=== PATIENT | female | born 1945 | race Caucasian/White ===

== ENCOUNTER 2020-04-14 12:20 | Outpatient (REF) | payer MEDICARE, OTHER, SELFPAY | END 2020-04-14 12:21 | disposition home or self-care (01) | LOC: HO.MANLNP 12:20 | PROVIDERS: PCP Physician Assistant; Visit Provider Physician Assistant | DX: R30.9 Painful micturition, unspecified (principal) | CPT/HCPCS: 87086 ==

== ENCOUNTER 2022-01-02 11:35 | Outpatient (REF) | payer MEDICARE, OTHER, SELFPAY ==
[2022-01-02 12:48] LABS: Appearance Urine CLEAR; Color Urine STRAW; Glucose Urine UA NEG (NEG); Leukocyte Esterase Urine NEG (NEG); Nitrite Urine NEG (NEG); PH 6.5 (5.0-8.0); Specific Gravity - Urine <= 1.005 (1.005-1.025); Urine Blood NEG (NEG); Urine Ketones NEG (NEG); Urine Protein NEG (NEG-TRACE)
[2022-01-02 12:58] LABS: RBC Urine 0 /HPF (0); WBC Urine 0 /HPF (0-4)
== END 2022-01-02 11:36 | disposition home or self-care (01) ==
LOC: HO.MANLDS 11:35
PROVIDERS: Visit Provider Physician Assistant
DX: R30.0 Dysuria (principal)
CPT/HCPCS: 81001; 87086

== ENCOUNTER 2024-09-08 14:11 | Outpatient (REF) | payer MEDICARE, OTHER, SELFPAY ==
[2024-09-08 18:25] LABS: MANUAL DIFF FLAG NO
[2024-09-08 18:29] LABS: Basophils Absolute Auto 0.1 X10*3/uL (0.0-0.2); Eosinophils Absolute Auto 0.2 X10*3/uL (0.0-0.4); Hematocrit 35.9 % (37.0-47.0); Hemoglobin 11.8 g/dl (12.0-16.0); Imm Gran Abs Auto 0.02 X10*3/uL (0.00-0.03); Imm Gran Pct Auto 0.3 % (0.0-0.4); Lymphocytes Absolute Auto 1.6 X10*3/uL (1.2-4.9); Mean Corpuscular HGB Conc 32.9 g/dl (31.0-35.0); Mean Corpuscular Hemoglobin 31.9 pg (27.0-33.0); Mean Platelet Volume 9.4 fL (9.4-12.3); Monocytes Absolute Auto 0.6 X10*3/uL (0.1-1.2); Monocytes Percent Auto 8.3 % (2-11); Neutrophils Absolute Auto 4.3 x10*3/uL (2.0-8.3); Neutrophils Percent Auto 63.4 % (45-73); Platelet Count 418 X10*3/uL (160-400); Red Cell Distribution Width 13.9 % (11.0-16.0); White Blood Count 6.7 X10*3/uL (4.8-10.8)
[2024-09-08 18:57] LABS: Alanine Aminotransferase 24 U/L (0-31); Albumin Level 3.9 g/dL (3.5-5.0); Alkaline Phosphatase 85 U/L (39-117); Anion Gap 11 (12-20); Aspartate Amino Transferase 26 U/L (5-31); Bilirubin Total 0.2 mg/dL (0.0-1.0); Blood Urea Nitrogen 23 mg/dL (9-16); Calcium 9.1 mg/dL (8.4-10.2); Carbon Dioxide 27 mmol/L (22-29); Chloride 106 mmol/L (96-108); Estimated Glomerular Filt Rate > 60; Glucose Random 87 mg/dL (60-115); Potassium 4.5 mmol/L (3.3-5.1); Sodium 139 mmol/L (135-145); Total Protein 6.8 g/dL (6.5-8.0)
[2024-09-08 19:18] LABS: Thyroid Stimulating Hormone 0.28 uIU/mL (0.32-4.0)
[2024-09-08 19:19] LABS: Vitamin B12 818 pg/mL (200-900)
[2024-09-08 19:29] LABS: T4 Thyroxine 7.7 ug/dL (4.5-12.0)
[2024-09-09 05:59] LABS: Estimated Average Glucose 105 mg/dL; Hemoglobin A1c % 5.3 % (<6.0)
== END 2024-09-08 14:12 | disposition home or self-care (01) ==
LOC: HO.MANLDS 14:11
PROVIDERS: Visit Provider Physician Assistant
DX: Z00.00 Encounter for general adult medical examination without abnormal findings (principal); Z13.1 Encounter for screening for diabetes mellitus
CPT/HCPCS: 36415; 80053; 82607; 83036; 84436; 84443; 85025

== ENCOUNTER 2024-09-14 07:33 | Outpatient (REF) | payer MEDICARE, OTHER, SELFPAY ==
[2024-09-14 14:16] LABS: Cholesterol 250 mg/dL (<200); HDL Cholesterol 68 mg/dL (>40); LDL Cholesterol Calculated 162 mg/dL (<100); Triglycerides 101 mg/dL (<150)
== END 2024-09-14 07:34 | disposition home or self-care (01) ==
LOC: HO.MANLDS 07:33
PROVIDERS: Visit Provider Physician Assistant
DX: Z00.00 Encounter for general adult medical examination without abnormal findings (principal); Z13.6 Encounter for screening for cardiovascular disorders
CPT/HCPCS: 36415; 80061

== ENCOUNTER 2024-10-26 15:49 | Outpatient (REF) | payer MEDICARE, OTHER, SELFPAY ==
--- OUTSIDE RECORDS SUMMARY | 2024-10-26 16:30 | XMS_ITS | Data Portability ---
Author Organization [facility] Home Service Address [address] [place] [address] Assessment Encounter Date Assessment Date Assessment LastModified by Organization Details LastModified Time 02/23/2024 02/23/2024 Patient agreed and verbally consents to this audio and video Telehealth appt via a secure platform [email or web address] Not available 02/23/2024 14:03:30 10/19/2024 10/19/2024 Patient agreed and verbally consents to this audio and video Telehealth appt via a secure platform [email or web address] Not available 10/19/2024 11:03:42 Plan of Treatment Reminders Order Date Submit Date Provider Last Modified By Organization Details Last Modified Time Details Appointments FOLLOW UP 15 2024 02:30P M BLANCHE ABDI Not available Not available Not available ANNUAL EXAM 2025 10:00A M BLANCHE ABDI Not available Not available Not available Lab CBC w/ auto diff 2024 025 [facility], [address] [place] [address], [id number], 10/26/2024 15:15:32 CMP, serum or plasma 2024 025 [facility], [address] [place] [address], [id number], 10/26/2024 15:13:28 osmolalit y, urine 2024 025 [facility], [address] [place] [address], [id number], 10/26/2024 15:13:28 CMP, serum or plasma 2024 025 [facility] [address], [address], 07/14/2024 10:44:42 CBC w/ auto diff 2024 025 [facility] [address], [address], 07/14/2024 10:44:42 vitamin D, 25-hydrox y, total, serum 2024 025 [facility] [address], [address], 07/14/2024 10:44:42 hemoglobi n A1c, QN, blood 2024 025 [facility] [address], [address], 09/09/2024 12:56:42 TSH + free T4, serum 2024 025 [facility] [address], [address], 07/14/2024 10:44:42 vitamin B12 + folate, serum or blood 2024 025 [facility] [address], [address], 07/14/2024 10:44:42 lipid panel, blood 2024 025 [facility] [address], [address], 09/15/2024 13:00:00 C reactive protein, QN, serum or plasma 2023 024 [facility] (Centralized Electronic Ordering - All Locations), Patient Can Go To The Location Of Their Choice, [id number] 03/24/2024 11:28:05 amylase + lipase, serum 2023 024 [facility] (Centralized Electronic Ordering - All Locations), Patient Can Go To The Location Of Their Choice, [address] 03/24/2024 11:28:05 iron + TIBC + ferritin, serum 2023 [facility] (Centralized Electronic Ordering - All Locations), Patient Can Go To The Location Of Their Choice, [address] 03/24/2024 11:28:05 CMP, serum or plasma 2023 [facility] (Centralized Electronic Ordering - All Locations), Patient Can Go To The Location Of Their Choice, [address] 04/01/2024 07:18:43 CBC w/ auto diff 2023 [facility] (Centralized Electronic Ordering - All Locations), Patient Can Go To The Location Of Their Choice, [address] 03/24/2024 11:28:05 ESR (erythroc yte sedimenta tion rate), blood 2023 [facility] (Centralized Electronic Ordering - All Locations), Patient Can Go To The Location Of Their Choice, [address] 03/24/2024 11:28:05 Referral urologist referral 2024 025 GURJIT Reid MD, [address] [place] [address], [address], 10/26/2024 16:23:43 gastroent erologist referral 2024 025 [email or web address] Hill Preciado MD, [address] [place] [address], [address], 10/26/2024 16:10:05 gastroent erologist referral 2024 025 [email or web address] Preciado MD, [address] [place] [address], [address], 07/16/2024 10:42:22 Procedures None recorded. Surgeries None recorded. Imaging US, abdomen + pelvis 2023 024 [email or web address] Not available 03/30/2024 09:50:54 Medication Orders metronida zole 0.75 % topical cream 2024 025 [facility], [address] [place] [address], [address], 10/19/2024 11:06:40 Zithromax Z-Donny 250 mg tablet 2024 025 [facility], [address] [place] [address], [address], 10/19/2024 11:06:37 Medrol (Donny) 4 mg tablets in a dose pack 2024 025 [facility], [address] [place] [address], [address], 10/19/2024 11:06:37 Zithromax Z-Donny 250 mg tablet 2023 024 [facility], [address] [place] [address], [address], 03/24/2024 10:51:48 fluocinol one acetonide oil 0.01 % ear drops 2023 024 [facility], [address] [place] [address], [address], 03/24/2024 10:51:54 Patient TargetsNo targets recorded. Patient InstructionsNo instructions recorded. Reason for Referral Greige Mender Referral for Screening for malignant neoplasm of colon due to for colonoscopy and endoscope Referring Physician: Juanita Conrad, Internal Medicine, Encounter Date: 07/14/2024 Urologist Referral for Kidne y stone kidney stone L side, 2mm getting a lot of pain Referring Physician: Juanita Conrad, Internal Medicine, Encounter Date: 10/26/2024 Greige Mender Referral for Acute abdominal pain has appointment, symptoms significantly worsening with abd pain Referring Physician: Juanita Conrad, Internal Medicine, Encounter Date: 10/26/2024 Results Created Date Observation Date Name Description Value Unit Range Abnormal Flag Note LastModifiedBy Organization Detail LastModifiedTime 03/31/20 24 03/31/2024 US, abdom en + pelvi s No observ ation record ed. [email or web address] [facility] [address] [place], [address], 04/02/2024 10:59:04 04/01/20 24 03/31/2024 MAMMO , scree alix, digit al, bilat eral No observ ation record ed. [email or web address] [facility] - Callback Orders Only [address] [place], [address], 04/02/2024 08:40:51 Result Notes None recorded. Problems Name Problem SNOMED Code Status Onset Date Resolution Date Notes Provider Name and Address Organization Details Recorded Time Gastroes ophageal reflux disease 483067656 Active 2018 Not Available [facility] 3 12:25:15 Pneumoni a caused by SARS-CoV -2 74461463606 1048430 Active 2021 Not Available [facility] 3 12:25:15 COVID-19 100298100 Active 2021 Not Available [facility] 3 12:25:15 Pain of right ankle joint 07130644992 829730 Active 2021 Not Available [facility] 3 12:25:15 Dysuria 77579450 Active 2021 Not Available [facility] 3 12:25:15 Lumbago with sciatica 068402019 Active 2021 Not Available [facility] 3 12:25:15 Acute sinusiti s 97758935 Active 2021 Not Available [facility] 3 12:25:15 Spinal stenosis of lumbar region 52923008 Active 2021 Not Available [facility] 3 12:25:15 Vertigo 152901630 Active 2021 Not Available [facility] 3 12:25:15 Posterio r rhinorrh ea 70570658 Active 2021 Not Available [facility] 3 12:25:15 Nausea 319916940 Active 2021 Not Available [facility] 3 12:25:15 Pain of left hip joint 25533468000 9100 Active 2022 Not Available [facility] 3 12:25:15 Acute bronchit is 34585719 Active 2022 Not Available [facility] 3 12:25:15 Acute urinary tract infectio n 281480154 Active 2022 Not Available [facility] 3 12:25:15 Abdomina l pain 91285774 Active 2022 BLANCHE ABDI [address] [place], [address], [facility] 3 11:03:08 Hematoch ezia 054843312 Active 2022 BLANCHE ABDI [address] [place], [address], [facility] 3 11:04:57 Gastriti s 3740000 Active 2022 BLANCHE ABDI [address] [place], [address], [facility] 3 11:06:06 Varicose veins of lower extremit y 39628402 Active 2022 BLANCHE ABDI [address] [place], [address], [facility] 3 11:11:56 Peripher al vascular disease 196852774 Active 2022 BLANCHE ABDI [address] [place], [address], [facility] 3 12:00:54 Pain of right elbow joint 81840513771 171794 Active 2023 BLANCHE ABDI [address] [place], [address], [facility] 4 09:52:47 Goiter 7771358 Active 2017 multinodu lar Not Available [facility] 3 12:25:15 Osteopen ia 437817920 Active 2017 Not Available [facility] 3 12:25:15 Dysthymi a 86517993 Active 2017 Not Available [facility] 3 12:25:15 Osteoart hritis 308990201 Active 2017 Not Available [facility] 3 12:25:15 Asthma 382899231 Active 2017 Not Available [facility] 3 12:25:15 Anxiety 66077252 Active 2017 Not Available [facility] 3 12:25:15 Degenera tion of lumbar interver tebral disc 76648082 Active 2017 Not Available [facility] 3 12:25:15 Essentia l hyperten tiesha 87790358 Active 2017 Not Available [facility] 3 12:25:15 Vaginiti s 85500190 Active 2017 Not Available [facility] 3 12:25:15 Hyperlip idemia 16168163 Active 2017 myalgias with statins Not Available [facility] 3 12:25:15 Pain of left shoulder joint 29567740872 722712 Active 2023 BLANCHE ABDI [address] [place], [address], [facility] 4 11:54:11 Strain of supraspi natus muscle AND/OR tendon 16437692 Active 2023 BLANCHE ABDI [address] [place], [address], [facility] 4 15:25:12 Acute otitis media 8501579 Active 2023 BLANCHE ABDI [address] [place], [address], [facility] 4 13:58:32 Acute otitis media 8331736 Active 2023 BLANCHE ABDI [address] [place], [address], [facility] 4 13:58:45 Eczema 20125831 Active 2023 BLANCHE ABDI [address] [place], [address], [facility] 4 14:03:13 Ashley e 191505253 Active 2023 BLANCHE ABDI [address] [place], [address], [facility] 4 11:01:11 Acute bilatera l otitis media 682387738 Active 2024 BLANCHE ABDI [address] [place] [address], [address], [facility] 5 11:02:58 Rosacea 834166846 Active 2024 BLANCHE ABDI [address] [place] [address], [address], [facility] 5 11:04:46 Acute abdomina l pain 440089907 Active 2024 BLANCHE ABDI [address] [place] [address], [address], [facility] 5 08:43:03 Hyponatr emia 19752735 Active 2024 BLANCHE ABDI [address] [place] [address], [address], [facility] 5 08:43:20 Kidney stone 92552537 Active 2024 BLANCHE ABID [address] [place] [address], [address], [facility] 5 15:05:12 Leukocyt osis 085979492 Active 2024 BLANCHE ABDI [address] [place], [address], [place] [facility] 5 15:12:28 Nausea and vomiting 83963288 Active 2024 BLANCHE ABDI [address] [place] [address], [address], [facility] 5 15:14:22 Notes:Some problems listed i n Document: #[id number] could not be added to this patient's chart. Please review this document and add these problems to the patient's chart manually as needed. Problem Notes None recorded. Procedures Surgical History Date Name Laterality Status Provider Name and Address Organization Details Recorded Time Carpal tunnel surgery completed Rosamaria Aleman NP, [address] [place] [address], [address], [facility] 01/12/2018 11:51:58 Rhinoplasty completed Rosamaria Casanova i, NP, [address] [place] [address], [address], [facility] 01/12/2018 11:52:07 Septoplasty completed Rosamaria Casanova i, NP, [address] [place] [address], [address], [facility] 01/12/2018 11:52:20 Imaging Results Imaging Date Name Status LastModified by Organiz ation Details LastModified Time 03/31/2024 US, abdomen + pelvis completed [email or web address] [facility] [address] [place], [address], 04/02/2024 10:59:04 03/31/2024 MAMMO, screening, digital, bilateral completed [email or web address] [facility] - Callback Orders Only [address] [place], [address], 04/02/2024 08:40:51 Procedure Notes None recorded. Medical Equipment None Reported. Allergies Allergen ID Allergen Name Allergen Category Reaction Reaction Severity Criticality Documentation Date Start Date Code Code System Note Provider Name and Address Organization Details Recorded Time 4166 Vioxx medicatio n rash Not available Not available 04/18/2020 48551 9 [facility] 0 13:31:28 4167 Celebrex medicatio n rash Not available Not available 04/18/2020 31636 7 RxNorm Nusrat Celis tiffanie [facility] 0 13:31:42 880 Product containin g penicilli n (product) medicatio n Not available Not available Not available 09/24/2017 19644 8001 SNOMED Flakita Mcconnell tiffanie [facility] 8 08:39:59 Medications Name Sig Start Date Stop Date Status Note LastModified by Organization Details LastModified Time budesonide 32 mcg/actuati on nasal spray Take 1 spray every day by nasal route for 30 days. 03/05 completed Not Available Not Available Not Available prednisone 10 mg tablet PLEASE SEE ATTACHED FOR DETAILED DIRECTION S 11/25 completed Not Available Not Available Not Available doxycycline hyclate 100 mg capsule TAKE 1 CAPSULE BY MOUTH TWICE A DAY FOR 10 DAYS 11/25 completed Not Available Not Available Not Available ketoconazol e 2 % shampoo 12/29 completed Not Available Not Available Not Available azithromyci n 250 mg tablet TAKE 2 TABLETS BY MOUTH TODAY, THEN TAKE 1 TABLET DAILY FOR 4 DAYS DIRECTED active Not Available Not Available No t Available ondansetron HCl 8 mg tablet 07/02 completed Not Available Not Available Not Available prednisone 20 mg tablet 09/24 completed Not Available Not Available Not Available Pyridium 100 mg tablet Take 1 tablet 3 times a day by oral route as needed. 01/12 completed Not Available Not Available Not Available Pyridium 200 mg tablet Take 1 tablet 3 times a day by oral route as needed for 7 days. 12/29 completed Not Available Not Available Not Available meclizine 12.5 mg tablet TAKE 1 TABLET BY MOUTH THREE TIMES A DAY NEEDED FOR 14 DAYS 07/02 completed Not Available Not Available Not Available ciprofloxac in 250 mg tablet TAKE 1 TABLET BY MOUTH TWICE A DAY FOR 5 DAYS 07/02 completed Not Available Not Available Not Available ciprofloxac in 500 mg tablet TAKE 1 TABLET BY MOUTH EVERY 12 HOURS FOR 7 DAYS 04/18 completed Not Available Not Available Not Available sulfamethox azole 800 mg-trimetho prim 160 mg tablet TAKE 1 TABLET BY MOUTH EVERY 12 HOURS FOR 7 DAYS 02/22 completed Not Available Not Available Not Available tramadol 50 mg tablet TAKE 1 TABLET BY MOUTH EVERY 6 HOURS NEEDED FOR 7 DAYS 03/05 completed PRN Not Available Not Available Not Available triamcinolo ne acetonide 0.1 % topical cream 01/12 completed Not Available Not Available Not Available meloxicam 7.5 mg tablet TAKE ONE TAB BY MOUTH ONCE A DAY BY MOUTH. TAKE THIS MEDICAITO N WITH FOOD 07/02 completed Not Available Not Available Not Available betamethaso ne, augmented 0.05 % lotion 01/12 completed Not Available Not Available Not Available alprazolam 0.5 mg tablet TAKE 1 TAB 1 HOUR PRIOR TO INJECTION . 03/05 completed Not Available Not Available Not Available citalopram 20 mg tablet TAKE 1 TABLET BY MOUTH EVERY DAY active Not Available Not Available No t Available lorazepam 0.5 mg tablet Take 1 tablet every day by oral route at bedtime. 07/02 completed Not Available Not Available Not Available benzonatate 100 mg capsule TAKE 1 CAPSULE BY MOUTH THREE TIMES A DAY NEEDED FOR COUGH 03/05 completed Not Available Not Available Not Available erythromyci n 5 mg/gram (0.5 %) eye ointment APPLY INTO RIGHT EYE 2 3 TIMES PER DAY NEEDED 12/29 completed Not Available Not Available Not Available lisinopril 10 mg tablet TAKE 1 TABLET BY MOUTH EVERY DAY active Not Available Not Available No t Available metronidazo le 0.75 % topical cream APPLY A THIN LAYER TOPICALLY TO THE AFFECTED AREA(S) 2 TIMES PER DAY IN THE MORNING AND EVENING active Not Available Not Available No t Available omeprazole 20 mg capsule,del ayed release TAKE 1 CAPSULE BY MOUTH TWICE A DAY active Not Available Not Available No t Available codeine 10 mg-guaifene sin 100 mg/5 mL oral liquid TAKE 10 ML BY MOUTH EVERY 4 HOURS NEEDED 02/22 completed Not Available Not Available Not Available levofloxaci n 500 mg tablet TAKE 1 TABLET BY MOUTH EVERY 24 HOURS FOR 7 DAYS 01/02 completed Not Available Not Available Not Available methylpredn isolone 4 mg tablets in a dose pack TAKE 6 TABLETS ON DAY 1 DIRECTED ON PACKAGE AND DECREASE BY 1 TAB EACH DAY FOR A TOTAL OF 6 DAYS active Not Available Not Available No t Available albuterol sulfate HFA 90 mcg/actuati on aerosol inhaler INHALE 2 PUFFS INTO THE LUNGS EVERY 4 HOURS NEEDED FOR WHEEZING OR SHORTNESS OF BREATH/DY SPNEA active Not Available Not Available No t Available clobetasol 0.05 % scalp solution 12/29 completed Not Available Not Available Not Available clotrimazol e 1 % topical cream 07/03 completed Not Available Not Available Not Available betamethaso ne dipropionat e 0.05 % lotion APPLY A FEW DROPS TO THE AFFECTED AREA(S) BY TOPICAL ROUTE 2 TIMES PER DAY IN THE MORNING AND AT BEDTIME ; RUB IN GENTLY AND COMPLETEL Y 04/18 completed Not Available Not Available Not Available doxycycline hyclate 100 mg tablet TAKE 1 TABLET BY MOUTH TWICE A DAY FOR 7 DAYS 03/05 completed Not Available Not Available Not Available dicyclomine 10 mg capsule TAKE 1 CAPSULE BY MOUTH THREE TIMES A DAY FOR 2 WEEKS 04/07 completed Not Available Not Available Not Available tobramycin 0.3 %-dexametha sone 0.1 % eye drops,suspe nsion INSTILL 1 DROP INTO BOTH EYES TWICE A DAY 03/05 completed Not Available Not Available Not Available oxycodone 5 mg tablet TAKE 1 TABLET BY MOUTH EVERY 6 HOURS NEEDED FOR PAIN *DO NOT DRIVE ON MEDICATIO N* 01/02 completed Not Available Not Available Not Available ciclopirox 0.77 % topical cream 01/12 completed Not Available Not Available Not Available prednisolon e sodium phosphate 5 mg base/5 mL (6.7 mg/5 mL) oral soln 10/07 completed Not Available Not Available Not Available rosuvastati n 5 mg tablet Take 1 tablet every day by oral route. 07/03 completed Not Available Not Available Not Available nitrofurant oin monohydrate /macrocryst als 100 mg capsule Take 1 capsule every 12 hours by oral route for 5 days. 12/29 completed Not Available Not Available Not Available magnesium 500 mg active Not Available Not Dawn ilable Not Available calcium 500mg qd active Not Available Not Dawn ilable Not Available Stool Softener Twice a day; OTC active Not Available Not Available No t Available Metamucil OTC 2022 active Not Available Not Available Not Avai lable Miralax 07/02 completed Not Available Not Available Not Available fluocinolon e acetonide oil 0.01 % ear drops INSTILL 5 DROPS INTO AFFECTED EAR X 10 DAYS 03/24 completed Not Available Not Available Not Available Aller-Inna OTC active Not Available Not Dawn ilable Not Available GaviLyte-G 236 gram-22.74 gram-6.74 gram-5.86 gram oral solution 10/31 completed Not Available Not Available Not Available Fluzone High-Dose 4073-6693 (PF) 180 mcg/0.5 mL intramuscul ar syringe 10/20 completed Not Available Not Available Not Available Shingrix (PF) 50 mcg/0.5 mL intramuscul ar suspension, kit 01/20 completed Not Available Not Available Not Available Fluad 2017- 65yr up(PF)45 mcg(15 mcgx3)/0.5 mL intramuscul ar syringe 06/19 completed Not Available Not Available Not Available Fluzone High-Dose (PF) 180 mcg/0.5 mL intramuscul ar syringe 04/14 completed Not Available Not Available Not Available Fluad Quad (6 5yr up)(PF) 60 mcg (15 mcg x 4)/0.5mL IM syringe 04/14 completed Not Available Not Available Not Available Flowflex COVID-19 Antigen Home Test kit DIRECTED 05/08 completed Not Available Not Available Not Available Vitals Date Recorded Body height Body mass index (BMI) Body weight Heart rate Oxygen saturation Oxygen saturation in Arterial blood by Pulse oximetry Systolic blood pressure Diastolic blood pressure Provider Name and Address Organization Details Last Updated DateTime 4 151.77 cm 30.3 kg/m2 72926.5 1 g 87 /min 95 % 95 % 142 mm[Hg] 88 mm[Hg] [facility] 4 11:04:36 Date Recorded Body height Body mass index (BMI) Body weight Heart rate Oxygen saturation Oxygen saturation in Arterial blood by Pulse oximetry Systolic blood pressure Diastolic blood pressure Provider Name and Address Organization Details Last Updated DateTime 5 151.77 cm 31.1 kg/m2 18998.9 5 g 68 /min 95 % 95 % 132 mm[Hg] 86 mm[Hg] Rachel Young [facility] 5 10:00:29 Date Recorded Body height Heart rate Oxygen saturation Oxygen saturation in Arterial blood by Pulse oximetry Systolic blood pressure Diastolic blood pressure Provider Name and Address Organization Details Last Updated DateTime 5 151.77 cm 91 /min 97 % 97 % 108 mm[Hg] 70 mm[Hg] Rachel Young [facility] 5 14:57:26 Social History Question Answer Notes LastModified by Organizat ion Details LastModified Time Tobacco Smoking Status Former Smoker Not Available [facility] 04/18/2020 03:36:24 What Was The Date Of Your Most Recent Tobacco Screening? 07/14/2024 [email or web address] Information not available 07/14/2024 How Many Years Have You Smoked Tobacco? 40 [id number] Information not available 04/18/2020 Sex: Unknown Functional Status Question Answer Note LastModified by Organization D etails LastModified Time Do you or have you ever used any other forms of tobacco or nicotine? No [email or web address] Information not available 01/02/2022 Mental Status None recorded. Family History Relationship Description Onset Age of this Age Resolved Age Notes LastModified by Organization Details LastModified Time Father Malignant tumor of colon 82 IFG, thyroi d goiter , OA car Not available 01/12/2018 11:49:55 Mother Chronic obstructive pulmonary disease vascul ar diseas e, pacema ker, neurop athy 2018- 97 years age car Not available 01/12/2018 11:51:03 Medical History Condition Response Coronary Artery Disease N Gout N Kidney Stones N Blood Diseases N Hyperthyroidism N Blood Transfusion Y Breast Cancer N Hypothyroidism N Lung Disease N Depression Y COPD N Defects or Inherited Disease N Difficulty Swallowing N Anesthesia Complications N Anxiety Disorder Y Meniere's disease N Muscle, Joint, or Bone Problems N Obesity N Vision or Eye Problems Y Arthritis Y Mental Disorder N Cancer N Stroke N Varicosities Y Bladder or Kidney Problems Y High Cholesterol Y Liver Disease N Fibromyalgia N Headaches Y Kidney Disease N Allergies/Hayfever Y Heart Problems N Hospitalizations N Thyroid Problems GI Problems N Eating Disorder N Anemia N Constipation Y Mental Illness N Diabetes N Seizures/Epilepsy N Tuberculosis N Congestive Heart Failure (CHF) N Eczema Y Abuse/Domestic Violence N Diverticulitis N Asthma Y Reflux/GERD N Hepatitis N Heart Disease N Pulmonary Embolism N Chronic Ear Infections N Hypertension Y Chicken Pox Y Autism Spectrum Disorder (ASD) N Osteoporosis Y Thrombophilias N Gynecological HistoryNo gynecological history recorded. Obstetrics History GPAL:G 0 P 0 0 0 0 Immunizations Vaccine Type Date Status Note Provider Nam e and Address Organization Details Recorded Time pneumococcal, unspecified formulation 04/19/20 15 completed Not Available [facility] 11/30/2022 21:21:27 zoster live 04/01/20 12 completed Not Available [facility] 11/30/2022 21:21:27 COVID-19, mRNA, LNP-S, PF, 100 mcg/0.5mL dose or 50 mcg/0.25mL dose 08/18/19 21 completed Not Available [facility] 11/30/2022 21:21:27 COVID-19, mRNA, LNP-S, PF, 100 mcg/0.5mL dose or 50 mcg/0.25mL dose 09/15/19 21 completed Not Available [facility] 11/30/2022 21:21:27 tetanus toxoid, unspecified formulation 05/29/20 16 completed Not Available [facility] 11/30/2022 21:21:27 Influenza, adjuvanted, trivalent, PF 02/28/20 18 completed Not Available [facility] [facility] 11/30/2022 21:21:27 Influenza, split virus, quadrivalent, preservative 03/08/20 21 completed Not Available [facility] 11/30/2022 21:21:27 COVID-19 mRNA, bivalent, original/Omicron BA.1, Non-US Vaccine (Spikevax Bivalent), Moderna 05/24/20 22 completed Not Available [facility] 11/30/2022 21:21:27 COVID-19, mRNA, LNP-S, PF, 50 mcg/0.5 mL dose 04/18/20 21 completed Not Available [facility] 11/30/2022 21:21:27 influenza, unspecified formulation 02/17/20 22 completed Not Available [facility] 11/30/2022 21:21:27 influenza, unspecified formulation 02/27/20 23 completed SARA Zamora [facility] 03/05/2023 14:00:47 SARS-COV-2 (COVID-19) vaccine, UNSPECIFIED 03/05/20 24 completed BLANCHE ABDI [address] [place], [address], [facility] 03/24/2024 11:16:37 influenza nasal, unspecified formulation 03/05/20 24 completed BLANCHE ABDI [address] [place], [address], [facility] 03/24/2024 11:17:00 Influenza, split virus, quadrivalent, preservative 03/04/20 19 completed Not Available [facility] 11/30/2022 21:21:27 Influenza, split virus, quadrivalent, preservative 02/10/20 20 completed Not Available [facility] 11/30/2022 21:21:27 pneumococcal polysaccharide PPV23 05/19/20 12 completed Not Available [facility] 11/30/2022 21:21:27 Td (adult) 11/15/19 06 completed Not Available [facility] 11/30/2022 21:21:27 Past Encounters Encounter ID Performer Location Encounter Start Date Encounter Closed Date Diagnosis/Indication Diagnosis SNOMED-CT Code Diagnosis ICD10 Code Diagnosis Note [id number] Mina Barnard [facility] [address] [place] [address],[place] [address] 09/24/2017 14:30:31 09/24/2017 17:11:23 Pes anserinus bursitis 68668508 M70.51 rest, ice, otc IBU 600mg BID with food Plantar fasciitis 104961 003 M72.2 formerly [facility] nighttime sock from [employer], suggestion s provided, exercises provided in writing, ice, decrease walking Anxiety 87218475 F41.9 reassuranc e [id number] Mina Barnard [facility] [address] [place] [address],[place] [address] 10/20/2017 10:49:56 10/20/2017 15:34:40 Gastroesophageal reflux disease 188243280 K21.0 if no relief prilosec will refer GI Multinodular goiter 7219 49842 E04.2 check labs in house today Seasonal a llergic rhinitis 210710944 J30.2 continue shots, flonase prn Essential hypertension 22091101 I10 stable [id number] Mina Branard [facility] [address] [place] [address] 11/11/2017 10:27:40 11/11/2017 11:40:04 Dysuria 02978094 R30.0 Plantar fasciitis 075817 003 M72.2 continue therapies outlined previously , call if decides wants to see 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 statins Greater tr ochanteric pain syndrome 7615898 M70.61 Asthma 810530307 J45.90 9 rare, r/t upper respirator y illnesses Anxiety 50101252 F41.9 Essential hypertension 76586826 I10 stable [id number] Mina Barnard [facility] [address] [place] [address] 02/20/2018 14:32:29 02/20/2018 16:06:58 Acute cystitis 58217105 N30.00 [id number] Mina Barnard [facility] [address] [place] [address] 02/24/2018 14:47:47 02/24/2018 16:32:52 Screening procedure 09866538 Z13.9 Polyp 070485300 N84.9 Dysuria-fr equency syndrome 0356063 R35.0 Follow [id number] Mina Barnard [facility] [address] [place] [address] 06/19/2018 10:32:31 06/19/2018 11:26:55 Acid reflux 803402283 K21.9 will continue omeprazole as it has improved- will increase to bid for a couple weeks Rectal discharge 0640028 01 R19.8 ? metamucil will try to split up the metamucil and drink more water with it and see if this improves if not would recommend a GI consult [id number] Mina Barnard [facility] [address] [facility], ite [facility] [place] [place] [address] 07/03/2018 11:02:05 07/03/2018 16:44:07 Acid reflux 749243388 K21.9 try to decrease to once daily omeprazole from BID, to QD Rectal discharge 3204828 01 R19.8 still has sometimes, maybe a bit better will send GI consult Asthma 153900307 J45.90 9 [id number] Mina Barnard [facility] [address] [facility],[place] [address] 07/17/2018 11:21:58 07/17/2018 16:01:01 Gastroesophageal reflux disease 374527854 K21.0 stick with BID dosing Anxiety 45096104 F41.9 follow, relaxation Essential hypertension 47391405 I10 stable [id number] Mina Barnrad [facility] [address] [facility] [place] [address] 10/07/2018 15:30:32 10/09/2018 08:59:01 Screening procedure 80877142 Z13.9 Rectal discharge 3946916 01 R19.8 Gastroesop hageal reflux disease 086463764 K21.0 stick with BID dosing Hyperlipidemia 84275586 E78.2 intol. 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 Antonio who was supposed to do a f/u before the pandemic Essential hypertension 31886764 I10 combinatio n of stress and pain form dealing with mother and neuroma of the foot usually much lower Anxiety 58475811 F41.9 having a really hard time with her mother, having really hard days where she feels very depressed and anxious [id number] Mina Barnard [facility] [address] [place] [address],[place] [address] 12/03/2019 13:55:06 12/03/2019 14:25:59 Dysuria 85402115 R30.9 [id number] Mina Barnard [facility] [address],[place] [address] 01/21/2020 13:45:05 01/21/2020 16:26:29 Dysuria 46720421 R30.9 recurrent most likely due to her protruding rectum Acute urin katerina tract infection 162385922 N39.0 did well on cipro last time, will increase strength and hopefull this takes care of it [id number] Mina Barnard [facility] [address],[place] [address] 04/14/2020 11:27:20 04/14/2020 12:06:06 Dysuria 14596310 R30.9 recurrent most likely due to her protruding rectum Asthma 382556114 J45.90 9 stable Essential hypertension 70941701 I10 BP is excellent [id number] Mina Barnard [facility] [address], [place] [address] 04/18/2020 13:27:21 04/18/2020 14:50:10 Pre-surgery evaluation 577896852 Z01.818 based on exam and history the patient is cleared for surgery [id number] Mina Barnard [facility] [address] [place] [address],[place] [facility] [place] [address] 12/29/2020 13:39:06 12/29/2020 14:17:20 Bunion 104033432 M21.611 discussed fu with ortho Pain of le ft hip joint 6065376284 09479 M25.552 will fu with XR Pain in both feet 184343 8644 0981127 M79.671 will start with XR and pred taper Hammer toe 181823156 M20 .42 will fu with XR Bursitis of left hip 773 479465 M70.72 will start of short course of prednisone Iliotibial band friction syndrome 893495530 M76.32 will start on pred Screening mammography 24 709274 Z12.31 needs repeat mammogram [id number] Mina Barnard [facility] [address] [place] [address], [place] [address] 03/16/2021 11:43:06 03/16/2021 15:16:38 Acute urinary tract infection 449290086 N39.0 will treat for UTI possible pyeloneprh ritiscan use AZO OTC and cranberry tabletsinc rease water intake Gastroesop hageal reflux disease 457274805 K21.9 continued 20 mg prilosec BID with diet restrictio n and increased water intake [id number] Mina Barnard [facility] [address] [place] [address], [place] [address] 04/18/2021 14:09:00 04/20/2021 10:17:11 Pain of right shoulder joint 4061783755 2528877 M25.511 possible tear of the biceps tendongive n note to given to facility to see if they are going to cover the cost or if they want everything going through her insurance [id number] Mina Barnard [facility] [address] [place] [address], [place] [address] 07/27/2021 11:01:38 07/31/2021 08:24:03 Pain in right foot 2811295751 91275 M79.671 will have her fu with another orthopedis t for a second opinion [id number] Mina Barnard [facility] [address] [place] [address], [place] [address] 09/26/2021 09:50:17 09/26/2021 12:03:13 Pneumonia caused by SARS-CoV-2 7063715321 40034007 J12.82 will start on levofloxac in and f/u with patient with check in on friday Asthma 417449802 J45.31 acute exacerbati on in the setting of pneumoniac ontinue use of inhaler COVID-19 304138241 U07.1 09/15/21, infected at the hospital post-op [id number] Mina Barnard DO [facility] [address] [facility],[place] [address] 01/02/2022 10:43:34 01/02/2022 13:24:41 Dysuria 97863806 R30.0 will fu with culture Pain of ri ght ankle joint 4545220519 8872564 M25.571 fu with XR Essential hypertension 53599213 I10 BP is excellent Hyperlipidemia 42835282 E78.2 will fu with blood work [id number] Mina Barnard DO [facility] [address] [facility],[place] [address] 05/08/2022 11:11:55 05/08/2022 12:01:25 Vertigo 352269521 R42 will give to use as needed Posterior rhinorrhea 758 46288 R09.82 will use once per day Nausea 438197596 R11.0 start for nausea Acute sinusitis 06922900 J01.01 will start on empiric abx for preventing infection Degenerati on of lumbar intervertebral disc 62686142 M51.36 needs another referral [id number] Mina Barnard [facility] [address] [facility],[place] [address] 07/02/2022 11:35:46 07/02/2022 13:43:49 Active or passive immunization 724873561 Z23 advised Adult heal th examination 523366830 Z00.00 BP is excellent Pain of le ft hip joint 7392018503 16734 M25.552 will f/u with XR of the left hip [id number] Mina Barnard DO [facility] [address] [facility],[place] [address] 08/23/2022 09:31:17 08/26/2022 16:50:01 Asthma 009385059 J45.31 acute exacerbati on in the setting of bronchitis continue use of inhaler Acute bronchitis 4946890 2 J20.8 will start on doxycyclin e [id number] Mina Barnard [facility] [address] [facility],[place] [address] 03/05/2023 10:42:29 03/05/2023 12:12:05 Anxiety 56583173 F41.1 stable Asthma 821641174 J45.20 stable Essential hypertension 08041256 I10 BP is excellent Hyperlipidemia 79628612 E78.2 stable Abdominal pain 22417749 R10.13 Hematochezia 953705609 K 92.1 related to hemorrhoid s (hx of hemorrhoid s) Gastritis 8916572 K29.60 hx of ulcer/ana ritis years before Varicose v eins of lower extremity 01244635 I83.92 will set up with vein clinic [id number] Mina Barnard [facility] [address] [facility],[place] [address] 04/07/2023 11:38:03 04/07/2023 12:35:32 Gastroesophageal reflux disease 898840274 K21.9 work on diet and add pepcid and Tums Peripheral vascular disease 143498470 I73.89 will f/u with vascular and discuss with surgeon [id number] iMna Barnard [facility] [address] [facility],[place] [address] 11/26/2023 11:12:13 11/28/2023 11:56:18 Depression screening 879933569 Z13.31 0 Pain of le ft shoulder joint 9785318116 6500783 M25.512 will need XR prior to MRIpositiv e hawkin's and empty can test positiveli mited overhead motion Peripheral vascular disease 515318752 I73.89 having procedure done, doing well Screening mammography of bilateral breasts 8450784199 27305 Z12.31 due for it this yearwill put in order [id number] Mina Barnard [facility] [address] [facility],[place] [address] 02/23/2024 10:38:58 02/23/2024 14:16:36 Acute otitis media 8109701 H65.02 start on zpak as prescribed Eczema 66653617 L20.89 start on ear drop for itching of the ears [id number] Mina Barnard [facility] [address] [facility], [place] [address] 03/24/2024 10:48:16 03/24/2024 13:28:28 Abdominal pain 15737527 R10.13 will set up with lab work and US abd and pelvis [id number] Mina Barnard [facility] [address] [facility], [place] [address] 07/14/2024 09:47:29 07/14/2024 11:18:12 Active or passive immunization 154126710 Z23 advised Adult heal th examination 582956611 Z00.00 BP is excellent Screening for malignant neoplasm of colon 678658295 Z12.11 will set up with GI, her doc wanted her to come back [id number] Mina Barnard [facility] [address] [facility], [place] [address] 10/19/2024 09:53:24 10/19/2024 11:28:06 Acute bilateral otitis media 640782372 H66.93 start on zpak as prescribed Rosacea 797914202 L71.9 will give script to try for flare ups [id number] Mina Barnard [facility] [address] [facility], [place] [address] 10/26/2024 14:25:45 10/26/2024 16:10:05 Acute abdominal pain 448679637 R10.9 will adjust referral for SAMANTHA appt given progressiv iban worse symptoms Hyponatremia 28998153 E8 7.1 will recheck levels Kidney stone 46380994 N2 0.0 fu with urology Leukocytosis 641022495 D 72.828 will recheck the levels Nausea and vomiting 1693 1999 R11.2 can use the ondanstero n if she needs Health Concerns Section Related Observation LastModified by Organization Detai ls LastModified Time None Recorded Concern Status LastModified by Organization Details LastModified Time None Recorded Advance Directives Directive None Recorded Payers Encounter Date Sequence Insurance Name Policy Number Policy Ochoa Covered Member ID Ochoa Member ID Guarantor Name 02/23/2024 1 [facility] MEDICARE PREFERRED (MEDICARE REPLACEMENT HMO) FABIO Tejada [id number] Mandy Tejada 02/23/2024 2 [place] Te[place] [id number] Mandy Tejada 03/24/2024 1 [facility] MEDICARE PREFERRED (MEDICARE REPLACEMENT HMO) FABIO Tejada [id number] Mandy 03/24/2024 2 [place] [id number] Mandy 07/14/2024 1 [facility] MEDICARE PREFERRED (MEDICARE REPLACEMENT HMO) FABIO Tejada [id number] Mandy 07/14/2024 2 [place] [id number] Mandy 10/19/2024 1 [facility] MEDICARE PREFERRED (MEDICARE REPLACEMENT HMO) FABIO Tejada [id number] Mandy 10/19/2024 2 [place] [id number] Mandy Tejada 10/26/2024 1 [facility] MEDICARE PREFERRED (MEDICARE REPLACEMENT HMO) FABIO Tejada [id number] Mandy 10/26/2024 2 [place] Tejada [id number] Mandy Tejada Notes Date Note Type Note Provider Name and Address Organization Details Recorded Time 4 text/html c/o ear infection The patient is participating in this appointment via telemedicine communication with a phone call/video calling service ([facility])The patient consents to use of these platforms in place of an in-person appointment due to either sick symptoms the patient is presenting with or current office closure due to COVID exposure in order to keep our office staff and patients safe The patient presents to the office today with concerns of sick symptoms including ear pain, started in right, moved to left sidethrobbing ache, constantno dishargeslight hearing changes The symptoms started originally last week after having a cold for two weeksThe patient symptoms mainly involves the ear pain Pertinent comorbidities include age, asthma The patient symptoms are alleviated by cough medicine, mucinex, advil cold and fluThe patient symptoms are exacerbated by pressure changes The patient has tested for COVID-19 and the results was negative x2 BLANCHE ABDI [address] [place], [address], [facility] 02/23/2024 14:06:21 4 text/html abdominal pain getting discomfort in the mid-abdomen, into the pelvisthe patient is having nausea, GERD, fecal urgency the patient had a colonoscopy showed crocked colon from being has a f/u scheduled in May for repeat will set up with lab work and imaging BLANCHE ABDI [address] [place], [address], [facility] 03/24/2024 11:29:23 5 text/html Annual WellnessReported bypatient.Diet and Nutrition:healthy diet; discussed vitamin and supplement use; discussed portion control; discussed maintaining calcium balance; discussed diet improvement Fracture Risk:no history of fractures; no recent explained fracture; no sudden unexplained fractures; no previous musculoskeletal injuries Physical Activity:exercises on a regular basis; recent increase in physical activity; good physical condition Additional Lifestyle Factors:no tobacco use; no alcohol intake; stopped drinking alcohol Depression Risk:never feels sad, empty, or tearful; no loss of interest in activities; no significant changes in weight; no sleep disturbances or insomnia; no agitation; no loss of energy; no feelings of worthlessness or guilt; no thoughts of suicide; no history of depression; no history of mood disorders Hearing:no loss of hearing Vision:no vision problems the patient reports that she sprained her L wrist after a fallhas a f/u with Dr. Perez for her hip and shoulder L the patient reports that her stomach pain/GERDusing in the medication BLANCHE ABDI [address] [place], [address], [facility] 07/14/2024 10:48:53 5 text/html c/o sick symptoms The patient is participating in this appointment via telemedicine communication with a phone call/video calling service (Doxy)The patient consents to use of these platforms in place of an in-person appointment due to either sick symptoms the patient is presenting with or current office closure due to COVID exposure in order to keep our office staff and patients safe the patient reports sore throat, bilateral ear ache, headache, swollen LNs (per pt), fatigue, body aches, chills, cough (dry) the patient reports that her grandchild was sick already, so virus/infection, no surealso had ear pain and sore throatwas treated by her gum dipper with meds according to pt, not sure what thoughno fever (obj) could be combo with allergies and exposure to sickness causing her symptomsrecommended preventative abx, her cough today has been producing green mucus and she is aching more than she was yesterday medrol for her ears, probably has some amount of serous effusion bilCOVID-19 negative per patient BLANCHE ABDI [address] [place], [address], [facility] 10/19/2024 11:10:28 5 text/html ED f/u patient called Friday for ongoing worsening flank pain and abdominal painadvised patient to d/c abx and steroids for possible reaction to the medication and increase fluid intake that day to flush out her systemif her symptoms persisted throughout the weekend due to limitations of me being able to assess her as it was the weekend I told the patient to go to UC or ER patient presented to the ER on 10/24/24 with continued symptomsvery mild changes on blood work, ie hyponatremia (slight) due to water consumption, WBC elevated more likely due to the fact she was on prednisoneoverall the rest of her blood work was unremarkableCT w/o contrast abdomen/pelvis was also negative as well as XR images obtainedurine was clean d/c stable, no specific cause for her symptoms was identified, more likely due to a reaction for the medication possibly given a normal work up did have a kidney stone left kidney, non obstructive, recommended uro consult given symptoms of sharp flank pain BLANCHE ABDI [address] [facility], [place], [address], [facility] 10/26/2024 15:18:31 OBGyn Episode No OBEpisode recorded.
--- OUTSIDE RECORDS SUMMARY | 2024-10-26 16:30 | XMS_ITS | Continuity of Care Document ---
Author Organization [facility] Address [address] [place] [id number] Phone Care Team Providers Care Construction Teacher Name Role Phone Keith HILL, RVT, TORRIE, Primo Unavailable U navailable Allergies, Adverse Reactions, Alerts Substance Reaction Status Criticality PENICILLIN Active No Information Medications Medication Instructions Dosage Effective Dates (start - stop) Status Comments LISINOPRIL (unknown strength) Not Available - Active CITALOPRAM HBR (unknown strength) Not Available - Active OMEPRAZOLE (unknown strength) Not Available - Active Procedures Procedure Date Office/Outpt E&M Established 10 Mins- CT & [place] Duplex Scan-extrem Veins; Uni/ CT & [place] J Duplex Scan-extrem Veins; Uni/ CT & [place] M Ultrason Guidan Needle Bx-rad- CT & [place] M Inj Sclerosing Solution; Sngl- CT & [place] M Office/Outpt E&M Established 15 Mins- CT & [place] Duplex Scan-extrem Veins; Uni/ CT & [place] M Duplex Scan-extrem Veins; Uni/ CT & [place] A Varithena, Single Truncal Vein - CT & [place] Endovenous Laser, 1st Vein- CT & [place] Endovenous laser vein addon- CT & [place] Sep Ultrason Guidan Needle Bx-rad- CT & [place] A pr-01-2024 Inj Sclerosing Solution; Sngl- CT & [place] A No Charge For Services Office/Outpt E&M Established 10 Mins - T elemedicine Office/Oupt E&M New Pt 30 Mins Duplex Scan-extrem Veins; Uni/ Advance Directives Directive Yes / No Effective Date File Name Other Directive No 12/10/2023 N/A WARNING:The information contained in this section is historical and is provided for information only and does not constitute a legal document or any assurance that the information is still accurate. Please verify the information with the nam of the legal document before using it for clinical purposes. Encounters Encounter Description Practice Location Reason(s) For Visit Diagnoses Date Provider Providers Copied on Encounter Office/Outpt E&M Established 10 Mins- CT & [place] [facility] MD MARTINI, [address] [place] [address] Dr [facility] [place], [id number], [place] tel:[phone] [facility] Chronic venous hypertension (idiopathic) with other complications of left lower extremity 4 Keith HILL RVT, RPVI Robert. [address] [place] [address], [id number], [place]. tel:[phone] Referring Provider: Mina Larsen, [address] [place] [address], [address]. tel:[phone] [facility], [address] [place] [address] Dr Kaufman [address]Suite Daniel Chaudhari [place], [id number], [place] tel:[phone] [facility] Chronic venous hypertension (idiopathic) with other complications of left lower extremity 4 Keith HILL RVT, RPVI Robert. [address] [place] [address], [id number], [place]. tel:[phone] Referring Provider: Mina Larsen, [address] [facility] [place], [address]. tel:[phone] [facility], [address] [place] [address] Dr Kaufman [address]Suite Daniel Chaudhari [place], [id number], [place] tel:[phone] [facility] [place] Encounter for follow-up examination after completed treatment for conditions other than malignant nePain in left leg 4 Keith HILL RVT, TORRIE Tillman. [address], [address], [place], [place], [id number], [place]. tel:[phone] Referring Provider: Mina Larsen, [address], [place], [address]. tel:[phone] [facility], [address] [place] [address] [address]Daniel [place], [id number], [place] tel:[phone] [facility] [place] Varicose veins of left lower extremity with other complications 4 Jairo Osorio. [facility] [facility], [address] [address], [place], [place], [id number], [place]. tel:[phone] Referring Provider: Mina Larsen, [address] [facility] [address], [place], [address]. tel:[phone] Office/Outpt E&M Established 15 Mins- CT & [place] [facility], [address] [place] [address] [address]Daniel [place], [id number], [place] tel:[phone] [facility] [place] Varicose veins of left lower extremity with other complications Varicose veins of left lower extremity with inflammationC ramp and spasmAtherosc lerotic heart disease of [place] coronary artery without angina pectoris 4 Keith HILL RVT, TORRIE Tillman. [address], [address], [place], [place], [id number], [place]. tel:[phone] Referring Provider: Mina Larsen, [address] [facility] [address], [place], [address]. tel:[phone] [facility], [address] [place] [address] [address]Daniel [place], [id number], [place] tel:[phone] [facility] [place] Varicose veins of left lower extremity with pain May- 4 Keith HILL RVT, RPVI Robert. [address], [address], [place], [place], [id number], [place]. tel:[phone] Referring Provider: Mian Larsen, [address] [facility] [address], [place], [address]. tel:[phone] [facility], [address] [place] [address] [address] [address]Daniel [place], [id number], [place] tel:[phone] CVR - [facility] Encounter for follow-up examination after completed treatment for conditions other than malignant neVaricose veins of left lower extremity with pain Sep-0 4 Keith HILL RVT, TORRIE Tillman. [address], [address] [facility], [place], [place], [id number], [place]. tel:[phone] Referring Provider: Mina Larsen, [address] [facility] [address], [place], [address]. tel:[phone] [facility], [address] [place] [address] [address] [place] Chaudhari [place], [id number], [place] tel:[phone] CV - [facility] Chronic venous hypertension (idiopathic) with inflammation of left lower extremity Sep-0 4 Keith HILL RVT, RPVI Robert. [address], [address] [facility], [place], [place], [id number], [place]. tel:[phone] Referring Provider: Mina Larsen, [address] [facility] [address], [place], [address]. tel:[phone] [facility], [address] [place] [address] [address]Daniel [place], [id number], [place] tel:[phone] CVR - [facility] Varicose veins of left lower extremity with other complications Sep-0 4 Keith HILL RVT, RPVI Robert. [address], [address], [place], [place], [id number], [place]. tel:[phone] Referring Provider: Mina Larsen, [address], [place], [address]. tel:[phone] [facility], [address] [place] [address] Dr [address], [place], [id number], [place] tel:[phone] [facility] [place] Varicose veins of left lower extremity with inflammationE ssential (primary) hypertension Aug- 4 Morgan Arias. [address] [facility] [address], [place], [place], [id number], [place]. tel:[phone] Referring Provider: Mina Larsen, [address], [place], [address]. tel:[phone] Office/Outpt E&M Established 10 Mins - Telemedicine [facility], [address] [place] [address] Dr [address], [place], [id number], [place] tel:[phone] [facility] [place] Varicose veins of left lower extremity with other complications 3 Kushal HILL FACS RVT TORRIE Casanova. [address] [address], [place], [address], [place]. tel:[phone] Referring Provider: Mina Larsen, [address], [place], [address]. tel:[phone] Office/Oupt E&M New Pt 30 Mins [facility], [address] [place] [address] Dr [address], [place], [id number], [place] tel:[phone] [facility] [place] Varicose veins of left lower extremity with other complications Cramp and spasmEssentia l (primary) hypertensionH emorrhage, not elsewhere classified 3 Kushal HILL FACS RVT TORRIE Casanova. [address] [facility] [address] [facility], [address], [place], [address], [place]. tel:[phone] Referring Provider: Mina Larsen, [address], [place], [address]. tel:[phone] [facility], [facility] [address], [place], [id number], [place] tel:[phone] CVR - [place] - [place] Chronic venous hypertension (idiopathic) with other complications of left lower extremity 3 Kushal HILL FACS RVT TORRIE Casanova. [address], [address], [place], [address], [place]. tel:[phone] Referring Provider: Mina Larsen, [address] [facility] [address], [place], [address]. tel:[phone] Family History Family Member Type Diagnosis Age At Onset No Information Payers Payer name Insurance type Covered constitution party ID Liam trinh(s) [employer] Preferred [place] [id number] Medical Assistance [facility] [id number] Social History Type Description Quantity Date Captured Comments Alcohol Use Details Unknown Caffeine Use Details Unknown Tobacco Use Status Current non-smoker Smoking Status Never Smoker Non-Smoking Tobacco Use Details : No Details Available : No Details Available Sex Female Vital Signs Date / Time: Height Weight BMI Pulse Rate Blood Pressure Temperature Respiratory Rate Body Surface Area Head Circumference Head Circ. Percentile Wt./Alexis. Percentile BMI percentile Pulse Ox Inhaled Ox 68.040 kg (150.00 lbs) 29.3 0 kg/m eter (2) 134/84 mm[Hg] Chief Complaint And Reason For Visit No Information Reason For Referral Reason For Referral No Information Plan Of Treatment Date Type Action Status Goal Diet education completed Goal Diet education completed Goal Tobacco cessation counseling completed Goal Diet education completed Referral Ordered: Weight management: Referral to physician timeframe: 3 Months (related to Body mass index (BMI) 29.0-29.9, adult) ordered Referral Ordered: Weight management: Referral to physician timeframe: 3 Months (related to Body mass index (BMI) 29.0-29.9, adult) ordered Referral Ordered: Weight management: Referral to physician timeframe: 3 Months (related to Body mass index (BMI) 29.0-29.9, adult) ordered History Of Present Illness Encounter Date Complaint History Of Prese nt Illness No Information Functional Status Date Functional Assessmen t No Information Instructions Date Instruction Additional Infor dorothy Diet education Related to Body mass index (BMI) 29.0-29.9, adult Giving Encouragement to exercise Related to Body mass index (BMI) 29.0-29.9, adult Compression stocking usage as conservative measure Related to Chronic venous hypertension (idiopathic) with other complications of left lower extremity Patient education booklet given Related to Chronic venous hypertension (idiopathic) with other complications of left lower extremity Lifestyle education Related to B giselle mass index (BMI) 29.0-29.9, adult Diet education Related to Body mass index (BMI) 29.0-29.9, adult Giving Encouragement to exercise Related to Body mass index (BMI) 29.0-29.9, adult Lifestyle education Related to B giselle mass index (BMI) 29.0-29.9, adult Compression stocking usage as conservative measure Related to Varicose veins of left lower extremity with other complications Patient education booklet given Related to Varicose veins of left lower extremity with other complications Patient education booklet given Related to Varicose veins of left lower extremity with inflammation Compression stocking usage as conservative measure Related to Varicose veins of left lower extremity with inflammation Giving Encouragement to exercise Related to Body mass index (BMI) 29.0-29.9, adult Lifestyle education Related to B giselle mass index (BMI) 29.0-29.9, adult Patient education booklet given Related to Varicose veins of left lower extremity with other complications Pre and post instruc tions reviewed and provided Related to Varicose veins of left lower extremity with other complications Diet education Related to Body mass index (BMI) 29.0-29.9, adult Assessments Type Assessment Date No Information Patient Care Teams Name Effective Dates (start - stop) Status Members No Information
--- OUTSIDE RECORDS SUMMARY | 2024-10-26 16:30 | XMS_ITS | Continuity of Care Document ---
Author Organization [facility], [facility] Address [address] [place] [address] Assessment No assessment recorded. Plan of Treatment Reminders Order Date Submit Date Provider Last Modified By Organization Details Last Modified Time Details Appointments FOLLOW UP 15 2024 02:30P M BLANCHE ABDI Not available Not available Not available ANNUAL EXAM 2025 10:00A M BLANCHE ABDI Not available Not available Not available Lab CBC w/ auto diff 2024 025 [facility], [address] [place] [address], [id number], 10/26/2024 15:15:32 CMP, serum or plasma 2024 025 [facility], [address] [place] [address], [place], [address], 10/26/2024 15:13:28 osmolalit y, urine 2024 025 [facility], [address] [place] [address], [id number], 10/26/2024 15:13:28 Referral urologist referral 2024 025 GURJIT Reid MD, [address] [place], [address], 10/26/2024 16:23:43 gastroent erologist referral 2024 025 [email or web address] Hill Preciado MD, [address] [place] [address], [id number], 10/26/2024 16:10:05 Procedures None recorded. Surgeries None recorded. Imaging None recorded. Medication Orders None recorded. Patient TargetsNo targets recorded. Patient InstructionsNo instructions recorded. Reason for Referral Urologist Referral for Kidne y stone kidney stone L side, 2mm getting a lot of pain Referring Physician: Juanita Conrad, Internal Medicine, Encounter Date: 10/26/2024 Signal Person Referral for Acute abdominal pain has appointment, symptoms significantly worsening with abd pain Referring Physician: Juanita Conrad, Internal Medicine, Encounter Date: 10/26/2024 Problems Name Problem SNOMED Code Status Onset Date Resolution Date Notes Provider Name and Address Organization Details Recorded Time Gastroes ophageal reflux disease 506380665 Active 2018 Not Available [facility] 3 12:25:15 Pneumoni a caused by SARS-CoV -2 88955417225 7325292 Active 2021 Not Available [facility] 3 12:25:15 COVID-19 149337759 Active 2021 Not Available [facility] 3 12:25:15 Pain of right ankle joint 31122028151 782513 Active 2021 Not Available [facility] 3 12:25:15 Dysuria 95562428 Active 2021 Not Available [facility] 3 12:25:15 Lumbago with sciatica 140866391 Active 2021 Not Available [facility] 3 12:25:15 Acute sinusiti s 00482631 Active 2021 Not Available [facility] 3 12:25:15 Spinal stenosis of lumbar region 48064782 Active 2021 Not Available [facility] 3 12:25:15 Vertigo 530963509 Active 2021 Not Available [facility] 3 12:25:15 Posterio r rhinorrh ea 86577491 Active 2021 Not Available [facility] 3 12:25:15 Nausea 711433458 Active 2021 Not Available [facility] 3 12:25:15 Pain of left hip joint 52126450074 9100 Active 2022 Not Available [facility] 3 12:25:15 Acute bronchit is 48530375 Active 2022 Not Available [facility] 3 12:25:15 Acute urinary tract infectio n 302840176 Active 2022 Not Available [facility] 3 12:25:15 Abdomina l pain 76701440 Active 2022 BLANCHE ABDI [address] [place], [address], [facility] 3 11:03:08 Hematoch ezia 564315832 Active 2022 BLANCHE ABDI [address] [place], [address], [facility] 3 11:04:57 Gastriti s 5955783 Active 2022 BLANCHE ABDI [address] [place], [address], [facility] 3 11:06:06 Varicose veins of lower extremit y 96812126 Active 2022 BLANCHE ABDI [address] [place], [address], [facility] 3 11:11:56 Peripher al vascular disease 141898480 Active 2022 BLANCHE ABDI [address] [place], [address], [facility] 3 12:00:54 Pain of right elbow joint 68814552171 029854 Active 2023 BLANCHE ABDI [address] [place], [address], [facility] 4 09:52:47 Goiter 4140140 Active 2017 multinodu lar Not Available [facility] 3 12:25:15 Osteopen ia 430251687 Active 2017 Not Available [facility] 3 12:25:15 Dysthymi a 15268158 Active 2017 Not Available [facility] 3 12:25:15 Osteoart hritis 602854715 Active 2017 Not Available [facility] 3 12:25:15 Asthma 332313518 Active 2017 Not Available [facility] 3 12:25:15 Anxiety 15271862 Active 2017 Not Available [facility] 3 12:25:15 Degenera tion of lumbar interver tebral disc 50802197 Active 2017 Not Available [facility] 3 12:25:15 Essentia l hyperten tiesha 23752268 Active 2017 Not Available [facility] 3 12:25:15 Vaginiti s 49664831 Active 2017 Not Available [facility] 3 12:25:15 Hyperlip idemia 25058508 Active 2017 myalgias with statins Not Available [facility] 3 12:25:15 Pain of left shoulder joint 86406590873 135404 Active 2023 BLANCHE ABDI [address] [place], [address], [facility] 4 11:54:11 Strain of supraspi natus muscle AND/OR tendon 70905162 Active 2023 BLANCHE ABDI [address] [place], [address], [facility] 4 15:25:12 Acute otitis media 8353279 Active 2023 BLANCHE ABDI [address] [place], [address], [facility] 4 13:58:32 Acute otitis media 3178296 Active 2023 BLANCHE ABDI [address] [place], [address], [facility] 4 13:58:45 Eczema 62431101 Active 2023 BLANCHE ABDI [address] [place], [address], [facility] 4 14:03:13 Ashley talley 804543483 Active 2023 BLANCHE ABDI [address] [place], [address], [facility] 4 11:01:11 Acute bilatera l otitis media 351362124 Active 2024 BLANCHE ABDI [address] [place], [address], [facility] 5 11:02:58 Rosacea 740566089 Active 2024 BLANCHE ABDI [address] [place], [address], [facility] 5 11:04:46 Acute abdomina l pain 218473349 Active 2024 BLANCHE ABDI [address] [place], [address], [facility] 5 08:43:03 Hyponatr emia 57365329 Active 2024 BLANCHE ABDI [address] [place], [address], [facility] 5 08:43:20 Kidney stone 23967368 Active 2024 BLANCHE ABDI [address] [place] [address], [address], [facility] 5 15:05:12 Leukocyt osis 142041751 Active 2024 BLANCHE ABDI [address] [place] [address], [address], [facility] 5 15:12:28 Nausea and vomiting 63594935 Active 2024 BLANCHE ABDI [address] [place], [address], [facility] 5 15:14:22 Notes:Some problems listed i n Document: #[id number] could not be added to this patient's chart. Please review this document and add these problems to the patient's chart manually as needed. Problem Notes None recorded. Procedures Surgical History Date Name Laterality Status Provider Name and Address Organization Details Recorded Time Carpal tunnel surgery completed Rosamaria Aleman NP, [address] [place] [address], [address], [facility] 01/12/2018 11:51:58 Rhinoplasty completed Rosamaria Casanova i, NP, [address] [place] [address], [address], [facility] 01/12/2018 11:52:07 Septoplasty completed Rosamaria Casanova i, NP, [address] [place] [address], [address], [facility] 01/12/2018 11:52:20 Imaging Results None recorded. Procedure Notes None recorded. Medical Equipment None Reported. Allergies Allergen ID Allergen Name Allergen Category Reaction Reaction Severity Criticality Documentation Date Start Date Code Code System Note Provider Name and Address Organization Details Recorded Time 4166 Vioxx medicatio n rash Not available Not available 04/18/2020 31287 9 RxNorm Nusrat Celis [facility] 0 13:31:28 4167 Celebrex medicatio n rash Not available Not available 04/18/2020 66445 7 RxNorm Nusrat Celis [facility] 0 13:31:42 880 Product containin g penicilli n (product) medicatio n Not available Not available Not available 09/24/2017 03893 8001 [facility]ED [facility] 8 08:39:59 Medications Name Sig Start Date [...] Available Not Available Not Available Fluzone High-Dose 7251-2482 (PF) 180 mcg/0.5 mL intramuscul ar syringe 10/20 completed Not Available Not Available Not Available Shingrix (PF) 50 mcg/0.5 mL intramuscul ar suspension, kit 01/20 completed Not Available Not Available Not Available Fluad 2018- 65yr up(PF)45 mcg(15 mcgx3)/0.5 mL intramuscul ar [...] Not Available Vitals Date Recorded Body height Heart rate Oxygen saturation Oxygen saturation in Arterial blood by Pulse oximetry Systolic blood pressure Diastolic blood pressure Provider Name and Address Organization Details Last Updated DateTime 5 151.77 cm 91 /min 97 % 97 % 108 mm[Hg] 70 mm[Hg] Rachel Beauchamp [facility] 5 14:57:26 Social History Question Answer Notes LastModified by Organizat ion Details LastModified Time Tobacco Smoking Status Former Smoker Not Available [facility] 04/18/2020 03:36:24 What Was The Date Of Your Most Recent Tobacco Screening? 07/14/2024 [email or web address] Information not available 07/14/2024 How Many Years Have You Smoked Tobacco? 40 [id number] Information not available 04/18/2020 Sex: Unknown Functional [...] 84 IFG, thyroi d goiter , OA eskawski Not available 01/12/2018 11:49:55 Mother Chronic obstructive pulmonary disease vascul ar diseas e, pacema ker, neurop athy 2017- years age eskawski Not available 01/12/2018 11:51:03 Medical History Condition [...] unspecified formulation 04/19/20 15 completed Not Available [facility] 11/30/2022 21:21:27 zoster live 04/01/20 12 completed Not Available [facility] 11/30/2022 21:21:27 COVID-19, mRNA, LNP-S, PF, 100 mcg/0.5mL dose or 50 mcg/0.25mL dose 08/18/19 21 completed Not Available [facility] 11/30/2022 21:21:27 COVID-19, mRNA, LNP-S, PF, 100 mcg/0.5mL dose or 50 mcg/0.25mL dose 09/15/19 21 completed Not Available [facility] 11/30/2022 21:21:27 tetanus toxoid, unspecified formulation 05/29/20 16 completed Not Available [facility] 11/30/2022 21:21:27 Influenza, adjuvanted, trivalent, PF 02/28/20 18 completed Not Available [facility] 11/30/2022 21:21:27 Influenza, split virus, quadrivalent, preservative 03/08/20 21 completed Not Available [facility] 11/30/2022 21:21:27 COVID-19 mRNA, bivalent, original/Omicron BA.1, Non-[place] Vaccine (Spikevax Bivalent), Moderna 05/24/20 22 completed Not Available [facility] 11/30/2022 21:21:27 COVID-19, mRNA, LNP-S, PF, 50 mcg/0.5 mL dose 04/18/20 21 completed Not Available [facility] 11/30/2022 21:21:27 influenza, unspecified formulation 02/17/20 22 completed Not Available [facility] 11/30/2022 21:21:27 influenza, unspecified formulation 02/27/20 23 [facility] 03/05/2023 14:00:47 SARS-COV-2 (COVID-19) vaccine, UNSPECIFIED 03/05/20 24 completed BLANCHE ABDI [address] [place], [address], [facility] 03/24/2024 11:16:37 influenza nasal, unspecified formulation 03/05/20 24 completed BLANCHE ABDI [address] [place], [address], [facility] 03/24/2024 11:17:00 Influenza, split virus, quadrivalent, preservative 03/04/20 19 completed Not Available [facility] 11/30/2022 21:21:27 Influenza, split virus, quadrivalent, preservative 02/10/20 20 completed Not Available [facility] 11/30/2022 21:21:27 pneumococcal polysaccharide PPV23 05/19/20 12 completed Not Available [facility] 11/30/2022 21:21:27 Td (adult) 11/15/19 06 completed Not Available [facility] 11/30/2022 21:21:27 Past Encounters Encounter ID Performer Location Encounter Start Date Encounter Closed Date Diagnosis/Indication Diagnosis SNOMED-CT Code Diagnosis ICD10 Code Diagnosis Note [id number] Mina Barnard [facility] [address] [facility] [address] 10/19/2024 09:53:24 10/19/2024 11:28:06 Acute bilateral otitis media 519701357 H66.93 start on zpak as prescribed Rosacea 060137137 L71.9 will give script to try for flare ups [id number] Mina Barnard DO [facility] [address],[place] [address] 10/26/2024 14:25:45 10/26/2024 16:10:05 Acute abdominal pain 782098533 R10.9 will adjust referral for SAMANTHA appt given progressiv iban worse symptoms Hyponatremia 84141090 E8 7.1 will recheck levels Kidney stone 24759377 N2 0.0 fu with urology Leukocytosis 161726542 D 72.828 will recheck the levels Nausea and vomiting 1693 1999 R11.2 can use the ondanstero n if she needs Health Concerns Section Related Observation LastModified by Organization Detai ls LastModified Time None Recorded Concern Status LastModified by Organization Details LastModified Time None Recorded Payers Encounter Date Sequence Insurance Name Policy Number Policy Ochoa Covered Member ID Ochoa Member ID Guarantor Name 10/26/2024 1 [facility] - MEDICARE PREFERRED (MEDICARE REPLACEMENT HMO) [facility] Mandy Tejada [id number] Mandy Tejada 10/26/2024 2 [place] [facility] Mandy Tejada [id number] Mandy Tejada Notes Date Note Type Note Provider Name a nd Address Organization Details Recorded Time 10/26/2024 text/html ED f/u patient called Friday for [...] of sharp flank pain BLANCHE ABDI [address] [facility], [place], [address], [facility] 10/26/2024 15:18:31 OBGyn Episode No OBEpisode recorded.
[2024-10-26 17:51] LABS: MANUAL DIFF FLAG NO
[2024-10-26 18:12] LABS: Basophils Absolute Auto 0.1 X10*3/uL (0.0-0.2); Eosinophils Absolute Auto 0.2 X10*3/uL (0.0-0.4); Eosinophils Percent Auto 1.9 % (0-4); Hematocrit 34.9 % (37.0-47.0); Hemoglobin 11.9 g/dl (12.0-16.0); Imm Gran Abs Auto 0.04 X10*3/uL (0.00-0.03); Imm Gran Pct Auto 0.5 % (0.0-0.4); Lymphocytes Absolute Auto 2.6 X10*3/uL (1.2-4.9); Lymphocytes Percent Auto 32.6 % (20-40); Mean Corpuscular HGB Conc 34.1 g/dl (31.0-35.0); Mean Corpuscular Hemoglobin 32.7 pg (27.0-33.0); Mean Corpuscular Volume 95.9 fL (80.0-98.0); Mean Platelet Volume 9.4 fL (9.4-12.3); Monocytes Absolute Auto 0.7 X10*3/uL (0.1-1.2); Monocytes Percent Auto 9.1 % (2-11); Neutrophils Absolute Auto 4.4 x10*3/uL (2.0-8.3); Neutrophils Percent Auto 54.9 % (45-73); Platelet Count 414 X10*3/uL (160-400); Red Blood Count 3.64 X10*6/uL (4.20-5.50); Red Cell Distribution Width 12.7 % (11.0-16.0)
[2024-10-26 18:43] LABS: Alanine Aminotransferase 20 U/L (0-31); Alkaline Phosphatase 83 U/L (39-117); Anion Gap 14 (12-20); Aspartate Amino Transferase 24 U/L (5-31); Bilirubin Total 0.2 mg/dL (0.0-1.0); Blood Urea Nitrogen 28 mg/dL (9-16); Calcium 8.6 mg/dL (8.4-10.2); Carbon Dioxide 27 mmol/L (22-29); Chloride 99 mmol/L (96-108); Estimated Glomerular Filt Rate 40; Glucose Random 100 mg/dL (60-115); Potassium 4.8 mmol/L (3.3-5.1); Sodium 135 mmol/L (135-145); Total Protein 6.8 g/dL (6.5-8.0)
[2024-10-26 18:47] LABS: Osmolality Urine 303 mosm/kg (373-1093)
== END 2024-10-26 15:50 | disposition home or self-care (01) ==
LOC: HO.MANLDS 15:49
PROVIDERS: Visit Provider Physician Assistant
DX: E87.1 Hypo-osmolality and hyponatremia (principal); D72.828 Other elevated white blood cell count
CPT/HCPCS: 36415; 80053; 83935; 85025